=== PATIENT | male | born 1950 | race Caucasian/White ===

== ENCOUNTER 2016-07-08 14:33 | Emergency (ER) | payer OTHER ==
[2016-07-08 14:43] VITALS: BP 137/71; PULSE 73; TEMP 98.1; BMI 36.1
[2016-07-08] MEDS ORDERED: ALBUTEROL SO4 2.5/IPRATROPIUM 0.5 INH SOL 3 ML VIAL.NEB. NEB ONE ×2 (15:36→15:40)
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
== END 2016-07-08 17:34 | disposition home or self-care (01) ==
LOC: JERFT 14:33
PROC: 3E0F7GC Introduction of Other Therapeutic Substance into Respiratory Tract, Via Natural or Artificial Opening (ICD-10-PCS; principal; 2016-07-08)
DX: J20.9 Acute bronchitis, unspecified (principal)
CPT/HCPCS: 71020-TC; 99281-25

== ENCOUNTER 2018-11-18 19:09 | Emergency (ER) | payer OTHER ==
--- NOTE | 2018-11-18 19:32 | PDOC ---
Rapid Medical Evaluation Chief Complaint: Foreign Body (FB) Time Seen by Provider: 11/18/18 19:29 Medical Evaluation: Allergies Allergy/AdvReac Type Severity Reaction Status Date / Time No Known Allergies Allergy Verified 07/08/16 14:43 11/18/18 19:29 c/o glass lodged?in left eye since yesterday, no vision changes, c/o pain to left eye Pe: patient alert ox3 A: eye pain P: patient to the ER further management. Discharge Disposition - Diagnosis Left eye pain - Discharge Dispostion Last Admission D/C Date: 07/10/08 - Referrals - Patient Instructions - Post Discharge Activity
[2018-11-18 19:34] VITALS: BP 158/80; PULSE 65; TEMP 98.4; BMI 35.9
[2018-11-18] MEDS ORDERED: DIPHTH,PERTUSS(ACELL),TET 0.5 ML DISP.SYRIN IM ONE ×2 (19:54→20:34)
--- NOTE | 2018-11-18 20:39 | PDOC ---
History of Present Illness - General Chief Complaint: Foreign Body (FB) Stated Complaint: EYE PAIN Time Seen by Provider: 11/18/18 19:29 - History of Present Illness Initial Comments: 11/18/18 20:36 68-year-old male with a past medical history significant for gout presents for evaluation of a suspected foreign body underneath his left eye. He states he was breaking glass and he felt a piece of glass hit him on the left cheek. He has no visual changes. No eye problems. He pulled off some glass from his face but feels like there may be a retained piece. He has no other symptoms. Past History - Past Medical History Allergies/Adverse Reactions: Allergies Allergy/AdvReac Type Severity Reaction Status Date / Time No Known Allergies Allergy Verified 11/18/18 20:33 Home Medications: Ambulatory Orders Cephalexin [Keflex] 500 mg PO QID #28 capsule 11/18/18 COPD: No - Suicide/Smoking/Psychosocial Hx Smoking History: Never smoked Have you smoked in the past 12 months: No Information on smoking cessation initiated: No Hx Alcohol Use: No Drug/Substance Use Hx: No Substance Use Type: None Review of Systems - Review of Systems Constitutional: Yes: See HPI *Physical Exam - Vital Signs Last Vital Signs Temp Pulse Resp BP Pulse Ox 98.4 F 65 18 158/80 100 11/18/18 19:30 11/18/18 19:30 11/18/18 19:30 11/18/18 19:30 11/18/18 19:30 - Physical Exam Comments: 11/18/18 20:37 HEAD: NC/AT EYES: Conjuntiva clear; there is a small superficial laceration on the left cheek there is no palpable foreign body or indication of infection there is normal skin color and temperature. MS: Full ROM in all joints without edema NEUROLOGIC: No gross sensory or motor deficits, NVID SKIN: Normal color and temperature no lesions or rashes ED Treatment Course - RADIOLOGY Radiology Studies Ordered: Category Date Time Status ORBITS [RAD] Stat Radiology 11/18/18 19:54 Taken Medical Decision Making - Medical Decision Making 11/18/18 20:38 X-rays of the left orbit show no evidence of suspected foreign body. I've updated tetanus, prophylax this patient with Keflex and I will have her follow- up with ophthalmology. *DC/Admit/Observation/Transfer Diagnosis at time of Disposition: Facial abrasion Diagnosis at time of Disposition: (Ruled Out): Left eye pain - Discharge Dispostion Disposition: HOME Condition at time of disposition: Stable Decision to Admit order: No - Prescriptions Prescriptions: Cephalexin [Keflex] 500 mg PO QID #28 capsule - Referrals Referrals: Austen Chung [Non Staff, Medical] - Sherwin Pate [Non Staff, Medical] - - Patient Instructions Additional Instructions: Your tetanus was updated today. Please take the antibiotics prophylactically as directed and finish the entire course. Follow-up with ophthalmology in one to 2 days for further evaluation and treatment options and return to the emergency room should symptoms worsen. - Post Discharge Activity
== END 2018-11-18 20:51 | disposition home or self-care (01) ==
LOC: JERFT 19:09 → JER 19:09 → JERFT 20:51
PROC: 3E0234Z Introduction of Serum, Toxoid and Vaccine into Muscle, Percutaneous Approach (ICD-10-PCS; principal; 2018-11-18)
DX: S00.81XA Abrasion of other part of head, initial encounter (principal); W25.XXXA Contact with sharp glass, initial encounter; Y93.89 Activity, other specified; Y92.89 Other specified places as the place of occurrence of the external cause
CPT/HCPCS: 70200-TC-FY; 90471; 90715; 99281-25

== ENCOUNTER 2019-02-21 15:08 | Emergency (ER) | payer OTHER ==
[2019-02-21 15:15] VITALS: BP 122/80; PULSE 90; TEMP 98; BMI 36.7
[2019-02-21] MEDS ORDERED: KETOROLAC TROMETHAMINE 60 MG/2 ML VIAL IM ONE (16:27)
[2019-02-21] MEDS ORDERED: traMADol HCL 50 MG TABLET PO ONE (16:27)
[2019-02-21] MEDS ORDERED: KETOROLAC TROMETHAMINE 60 MG/2 ML VIAL ONE (16:44)
[2019-02-21] MEDS ORDERED: traMADol HCL 50 MG TABLET ONE (16:44)
[2019-02-21 17:13] LABS: BASO % 1.1 % (0-2.0); EOS % 5.6 % (0-4.5); HEMATOCRIT 49.4 % (35.4-49); HEMOGLOBIN 16.2 GM/dL (11.7-16.9); LYMPH % 13.8 % (8-40); MCH 29.8 pg (25.7-33.7); MCHC 32.9 g/dl (32.0-35.9); MEAN CELL VOLUME 90.6 fl (80-96); MEAN PLT VOLUME 7.8 fl (7.5-11.1); MONO % 5.6 % (3.8-10.2); NEUT % 73.9 % (42.8-82.8); PLATELET COUNT 199 K/MM3 (134-434); RBC 5.45 M/mm3 (4.00-5.60); RDW 15.1 % (11.9-15.9); WHITE BLOOD COUNT 11.6 K/mm3 (4.0-10.0)
--- NOTE | 2019-02-21 17:13 | PDOC ---
History of Present Illness <Jeanie Light - Last Filed: 02/21/19 17:36> - General History Source: Patient - History of Present Illness Occurred: reports: other Lower Extremity Pain Location: left: foot, ankle, bilateral: knee <Scott Valencia - Last Filed: 02/21/19 18:01> - General Chief Complaint: Pain Stated Complaint: PAIN IN LEGS Time Seen by Provider: 02/21/19 16:05 Past History <Jeanie Light - Last Filed: 02/21/19 17:36> - Past Medical History COPD: No - Suicide/Smoking/Psychosocial Hx Smoking History: Never smoked Have you smoked in the past 12 months: No Hx Alcohol Use: No Drug/Substance Use Hx: No Substance Use Type: None <Scott Valencia - Last Filed: 02/21/19 18:01> - Past Medical History Allergies/Adverse Reactions: Allergies Allergy/AdvReac Type Severity Reaction Status Date / Time No Known Allergies Allergy Verified 02/21/19 15:15 Home Medications: Ambulatory Orders Cephalexin [Keflex] 500 mg PO QID #28 capsule 11/18/18 Acetaminophen [Tylenol -] 1,000 mg PO Q6H #50 tablet 02/21/19 Tramadol HCl 50 mg PO Q6H #20 tablet MDD 200mg 02/21/19 Review of Systems - Review of Systems Constitutional: No: Chills, Fever Respiratory: No: Shortness of Breath Cardiac (ROS): No: Chest Pain, Palpitations Musculoskeletal: Yes: Joint Pain, Joint Swelling <Scott Valencia - Last Filed: 02/21/19 18:01> *Physical Exam - Vital Signs Last Vital Signs Temp Pulse Resp BP Pulse Ox 98 F 90 18 122/80 98 02/21/19 15:09 02/21/19 15:09 02/21/19 15:09 02/21/19 15:09 02/21/19 15:09 <Jeanie Light - Last Filed: 02/21/19 17:36> - Vital Signs Last Vital Signs Temp Pulse Resp BP Pulse Ox 98 F 90 18 122/80 98 02/21/19 15:09 02/21/19 15:09 02/21/19 15:09 02/21/19 15:09 02/21/19 15:09 - Physical Exam Comments: 02/21/19 17:22 slight limp in ER General Appearance: Yes: Appropriately Dressed, Mild Distress HEENT: positive: Normal Voice Neck: positive: Supple Respiratory/Chest: negative: Respiratory Distress Extremity: positive: Other (minimal swelling diffusely to L ankle/foot w/ minimal ttp, no hot, red joint, no obvious podagra, b/l knees withotu swelling/ redness or ttp, FROMI to b/l LE joints) Integumentary: positive: Dry, Warm Neurologic: positive: Fully Oriented, Alert, Normal Mood/Affect, Motor Strength 5/5 <Scott Valencia - Last Filed: 02/21/19 18:01> ED Treatment Course - LABORATORY CBC & Chemistry Diagram: 02/21/19 16:00 02/21/19 16:00 - ADDITIONAL ORDERS Additional order review: 02/21/19 16:00 RBC 5.45 MCV 90.6 MCHC 32.9 RDW 15.1 MPV 7.8 Neutrophils % 73.9 Lymphocytes % 13.8 Monocytes % 5.6 Eosinophils % 5.6 H Basophils % 1.1 - Medications Given in the ED: ED Medications Discontinued Medications Generic Name Dose Route Start Last Admin Trade Name Freq PRN Reason Stop Dose Admin Ketorolac Tromethamine 60 mg 02/21/19 16:27 02/21/19 16:54 Toradol Injection - IM 02/21/19 16:28 60 mg ONCE ONE Administration Tramadol HCl 50 mg 02/21/19 16:27 02/21/19 16:55 Ultram - PO 02/21/19 16:28 50 mg ONCE ONE Administration <Jeanie Light - Last Filed: 02/21/19 17:36> - LABORATORY CBC & Chemistry Diagram: 02/21/19 16:00 02/21/19 16:00 - Medications Given in the ED: ED Medications Discontinued Medications Generic Name Dose Route Start Last Admin Trade Name Freq PRN Reason Stop Dose Admin Ketorolac Tromethamine 60 mg 02/21/19 16:27 02/21/19 16:54 Toradol Injection - IM 02/21/19 16:28 60 mg ONCE ONE Administration Tramadol HCl 50 mg 02/21/19 16:27 02/21/19 16:55 Ultram - PO 02/21/19 16:28 50 mg ONCE ONE Administration <Scott Valencia - Last Filed: 02/21/19 18:01> Medical Decision Making - Medical Decision Making The patient was seen and evaluated in conjunction with midlevel provider under my direct supervision, ancillary studies were reviewed. I agree with the plan as outlined DARRIUS valencia. HPI, workup/dispo as outlined. VS reviewed, wnl. anticipate discharge, pcp followup, return precautions 02/21/19 17:36 <Jeanie Light - Last Filed: 02/21/19 17:36> - Medical Decision Making 02/21/19 17:02 68 yo M, endorses h/o gout, usually to knees, on allopurinal which he takes daily, ? arthritis, here w/ pain to multiple joints x 2 weeks. 2 weeks ago had swelling to right knee only and was seen by his M.D., who started him on prednisone taper, which he completed with no relief since. Since then has had pain to L knee and L foot, ankle. States pain to left foot/ankle is the worse. Denies any fever or chills. No history of septic joint. States current symptoms feel like his gout see exam Gout flare vs arthritis Pain to multiple joints, most notably to L ankle/foot w/ swelling to site Completed pred taper within 2 weeks w/ no relief No h/o septic joint No hot, red joint on exam No recent trauma No obvious RF for DVT/PE and unlikely given duration of sxs and multiple joints involved -labs including uric acid -pain control/reassess 02/21/19 18:00 Labs unremarkable, uric acid wnl. Pt reports improvement w/ meds. Will dc w/ pain control and have pt f/u with his shutdown planner <Scott Valencia - Last Filed: 02/21/19 18:01> *DC/Admit/Observation/Transfer <Jeanie Light - Last Filed: 02/21/19 17:36> <Scott Valencia - Last Filed: 02/21/19 18:01> Diagnosis at time of Disposition: Multiple joint pain - Discharge Dispostion Disposition: HOME Condition at time of disposition: Improved - Prescriptions Prescriptions: Acetaminophen [Tylenol -] 1,000 mg PO Q6H #50 tablet Tramadol HCl 50 mg PO Q6H #20 tablet MDD 200mg - Referrals Referrals: Yoni Retana MD, [Primary Care Provider] - - Patient Instructions Additional Instructions: It is unclear if you joint pain is due to gout or arthritis as your uric acid level was 6.8 which is normal level Take tylenol for pain and if needed, take tramadol as directed Please follow up with your shutdown planner - Post Discharge Activity
[2019-02-21 17:47] LABS: ALBUMIN 3.7 g/dl (3.4-5.0); BILIRUBIN,TOTAL 0.9 mg/dL (0.2-1); BLOOD UREA NITROGEN 19.8 mg/dL (7-18); CALCIUM 9.1 mg/dL (8.5-10.1); POTASSIUM 4.6 mmol/L (3.5-5.1); TOT PROT 7.6 g/dl (6.4-8.2)
[2019-02-21 18:01] LABS: PLATELET ESTIMATE ADEQUATE
== END 2019-02-21 17:55 | disposition home or self-care (01) ==
LOC: JER 15:08
PROC: 3E0233Z Introduction of Anti-inflammatory into Muscle, Percutaneous Approach (ICD-10-PCS; principal; 2019-02-21)
DX: M25.572 Pain in left ankle and joints of left foot (principal); M25.561 Pain in right knee; M25.562 Pain in left knee; Z87.39 Personal history of other diseases of the musculoskeletal system and connective tissue
CPT/HCPCS: 36415; 80053; 84550; 85025; 99284-25

== ENCOUNTER 2019-07-10 23:04 | Emergency (ER) | payer OTHER ==
[2019-07-10 23:17] VITALS: BP 145/96; PULSE 64; TEMP 97.9; BMI 38.9
--- NOTE | 2019-07-10 23:25 | PDOC ---
History of Present Illness - General Chief Complaint: Pain, Acute Stated Complaint: LT GROIN PAIN Time Seen by Provider: 07/10/19 23:14 - History of Present Illness Initial Comments: 07/10/19 23:46 This 69-year-old man with a history of gout/HLD/kidney stone presents with a 1 day history of left lower quadrant abdominal pain. Patient first felt the pain during the day today (steady, does not change with position or movement). No previous CVA/flank/other abdominal pain in the last few days. He denies fever/ chills/nausea/vomiting/diarrhea. He has been eating and drinking fluids without difficulty (last meal at approximately 6 PM). No dysuria/hematuria/ urinary frequency. No history of abdominal wall trauma or strenuous activity such as lifting/pulling/pushing heavy material. Patient has a history of 4 mm left UVJ stone seen on spiral CT 04/23/2015 ( patient was seen at [facility] ED). Stone passed spontaneously and he has had no subsequent episodes of renal colic. Patient states that although he takes allopurinol his uric acid level is chronically elevated and he has frequent episodes of joint pains secondary to his gout. Medications as noted below; patient is compliant with his medications No known allergies Non-smoker; no alcohol/other recreational drug use Past History - Past Medical History Allergies/Adverse Reactions: Allergies Allergy/AdvReac Type Severity Reaction Status Date / Time No Known Allergies Allergy Verified 02/21/19 15:15 Home Medications: Ambulatory Orders Indomethacin 07/10/19 Pravastatin Sodium [Pravachol] 40 mg PO DAILY 07/10/19 Amox-Tr/K Cl [Augmentin - 875Mg Tablet] 1 tab PO BID #20 tablet 07/11/19 metroNIDAZOLE [Flagyl -] 250 mg PO TID #21 tablet 07/11/19 COPD: No Hypercholesterolemia: Yes Other medical history: GOUT - Psycho Social/Smoking Cessation Hx Smoking History: Unknown if ever smoked Have you smoked in the past 12 months: No Information on smoking cessation initiated: No Hx Alcohol Use: No Drug/Substance Use Hx: No Substance Use Type: None Review of Systems - Review of Systems Able to Perform ROS?: Yes Comments:: 12 point review of systems is negative except for what is noted in the history of present illness *Physical Exam - Vital Signs Last Vital Signs Temp Pulse Resp BP Pulse Ox 97.9 F 64 16 145/96 98 07/10/19 23:09 07/10/19 23:09 07/10/19 23:09 07/10/19 23:09 07/10/19 23:09 - Physical Exam GENERAL: Adult male, alert and oriented x3, no acute distress HEAD: Normal with no signs of trauma. EYES: PERRLA, EOMI, sclera anicteric, conjunctiva clear. ENT: Ears normal, nares patent, oropharynx clear without exudates. Dry mucous membranes. NECK: Normal range of motion, supple without lymphadenopathy, JVD, or masses. LUNGS: Breath sounds equal, clear to auscultation bilaterally. No wheezes, and no crackles. HEART:Regular rate and rhythm, normal S1 and S2 without murmur, rub or gallop. ABDOMEN:.normal bowel sounds; soft, mildly distended; moderate left lower quadrant tenderness with mild guarding; no rebound No CVA/flank/scrotal tenderness EXTREMITIES: Normal range of motion, no edema. No clubbing or cyanosis. No erythema, or tenderness. NEUROLOGICAL: Cranial nerves II through XII grossly intact. Normal speech. No focal neurological deficits. SKIN: Warm, Dry, normal turgor, no rashes or lesions noted. ED Treatment Course - LABORATORY CBC & Chemistry Diagram: 07/11/19 00:00 07/11/19 00:00 Medical Decision Making - Medical Decision Making This 69-year-old man with a history of gout/HLD/one episode of renal colic in the past presents with 1 day history of left lower quadrant pain which does not change with position or movement. No associated symptoms. Exam as noted with point tenderness in the left lower quadrant. With the patient's previous history of renal colic and gout, kidney stone is a possibility; differential diagnosis also includes diverticulitis/UTI Patient provided urine sample and IV access obtained. CBC,Chemistry profile,UA sent Patient received a liter of normal saline and 30 mg of Toradol IV Diagnostic work-up: CBC notable for mild elevation of white blood cell count to 10,700; urinalysis was normal without evidence of hematuria or other abnormality Reexamination revealed persistence of left lower quadrant tenderness Abdominal/pelvic CT with IV contrast performed: Preliminary interpretation by Imaging controlled area checker-uncomplicated sigmoid diverticulitis without evidence for other abnormality. Results discussed with patient. Patient re-affirmed that he has no allergies to antibiotics. Patient given dose of Augmentin 875/125 and 250 mg of Flagyl by mouth. 10-day course of Augmentin 875/125 twice a day and Flagyl 250 mg 3 times a day sent to patient's pharmacy Light diet is recommended as well as plenty of fluids. He should follow-up with his general medical doctor () within the next 3 to 4 days. He should return to the ER if he experiences increasing abdominal pain, fever or vomiting Discharge - Discharge Information Problems reviewed: Yes Clinical Impression/Diagnosis: Acute diverticulitis Condition: Stable Disposition: HOME - Additional Discharge Information Prescriptions: Amox-Tr/K Cl [Augmentin - 875Mg Tablet] 1 tab PO BID #20 tablet metroNIDAZOLE [Flagyl -] 250 mg PO TID #21 tablet - Follow up/Referral Referrals: Yoni Retana MD, MD [Primary Care Provider] - 3 days - Patient Discharge Instructions Patient Printed Discharge Instructions: Diverticulitis Additional Instructions: Light diet Augmentin 875/125 twice a day for 10 days; take with food Flagyl 250 mg 3 times a day for 10 days Follow-up with your doctor within the next 3 to 4 days Return to ER if you have more severe pain or you develop fever/vomiting - Post Discharge Activity
[2019-07-10] MEDS ORDERED: KETOROLAC TROMETHAMINE 30 MG/1 ML VIAL IVPUSH ONE (23:40)
[2019-07-10] MEDS ORDERED: SODIUM CHLORIDE 1,000 ML IV STA (23:40)
[2019-07-10] MEDS ORDERED: KETOROLAC TROMETHAMINE 30 MG/1 ML VIAL ONE (23:46)
[2019-07-11 00:41] LABS: EOS % 6.6 % (0-4.5); HEMATOCRIT 46.1 % (35.4-49); HEMOGLOBIN 15.6 GM/dL (11.7-16.9); LYMPH % 20.4 % (8-40); MCH 30.2 pg (25.7-33.7); MCHC 33.9 g/dl (32.0-35.9); MEAN CELL VOLUME 89.1 fl (80-96); MEAN PLT VOLUME 8.9 fl (7.5-11.1); MONO % 7.8 % (3.8-10.2); NEUT % 64.2 % (42.8-82.8); PLATELET COUNT 143 K/MM3 (134-434); RBC 5.18 M/mm3 (4.00-5.60); RDW 16.2 % (11.9-15.9); WHITE BLOOD COUNT 10.7 K/mm3 (4.0-10.0)
[2019-07-11 01:01] LABS: PH,URINE 5.5 (5.0-8.0); URINE APPEARANCE CLEAR; URINE BILIRUBIN NEGATIVE (NEGATIVE); URINE COLOR YELLOW; URINE GLUCOSE (UA) NEGATIVE (NEGATIVE); URINE KETONE NEGATIVE (NEGATIVE); URINE LEUK ESTERASE NEGATIVE (NEGATIVE); URINE NITRITE NEGATIVE (NEGATIVE); URINE PROTEIN NEGATIVE (NEGATIVE); URINE UROBILINOGEN 0.2 mg/dL (0.2-1.0)
[2019-07-11 01:22] LABS: ALBUMIN 3.9 g/dl (3.4-5.0); BILIRUBIN,TOTAL 0.6 mg/dL (0.2-1); BLOOD UREA NITROGEN 19.8 mg/dL (7-18); CALCIUM 9.2 mg/dL (8.5-10.1); POTASSIUM 4.3 mmol/L (3.5-5.1); TOT PROT 7.8 g/dl (6.4-8.2)
[2019-07-11] MEDS ORDERED: AMOX TR/POT CLAV 875MG/125MG TABLETS (FP) PO ONE (02:40)
[2019-07-11] MEDS ORDERED: metroNIDAZOLE 500 MG TABLET PO ONE (02:41)
[2019-07-11] MEDS ORDERED: metroNIDAZOLE 250 MG TABLET ONE (02:42)
[2019-07-11] MEDS ORDERED: AMOX TR/POT CLAV 875MG/125MG TABLETS (FP) ONE (02:42)
== END 2019-07-11 02:48 | disposition home or self-care (01) ==
LOC: FER 23:04
PROC: 3E0333Z Introduction of Anti-inflammatory into Peripheral Vein, Percutaneous Approach (ICD-10-PCS; principal; 2019-07-10)
DX: K57.92 Diverticulitis of intestine, part unspecified, without perforation or abscess without bleeding (principal); M10.9 Gout, unspecified; E78.5 Hyperlipidemia, unspecified; N20.0 Calculus of kidney
CPT/HCPCS: 36415; 74177-TC; 80053; 81003; 85025; 99283-25; J7030; Q9967

== ENCOUNTER 2020-07-02 14:08 | Emergency (ER) | payer OTHER | END 2020-07-02 16:24 | disposition home or self-care (01) | LOC: JER 14:08 | DX: U07.1 COVID-19 (principal) | CPT/HCPCS: 99283-25 ==

== ENCOUNTER 2020-07-08 11:25 | Emergency (ER) | payer OTHER ==
[2020-07-08 11:33] VITALS: BP 141/76; PULSE 86; TEMP 101.2; BMI 34.0
[2020-07-08] MEDS ORDERED: ACETAMINOPHEN 325 MG TABLET (FP) PO ONE (12:06)
[2020-07-08] MEDS ORDERED: ACETAMINOPHEN 325 MG TABLET (FP) ONE (12:09)
[2020-07-08] MEDS: LACTATED RINGERS SOLUTION 1000 ML INFUS.BAG IV ONE ×2 (12:10→12:28)
[2020-07-08] MEDS ORDERED: SODIUM CHLORIDE 0.9% 500 ML INFUS.BAG IV ONE (12:12)
[2020-07-08 12:51] LABS: BASO % 1.5 % (0-2.0); EOS % 0.9 % (0-4.5); HEMATOCRIT 47.8 % (35.4-49); HEMOGLOBIN 15.8 GM/dl (11.7-16.9); LYMPH % 14.4 % (8-40); MCH 30.4 pg (25.7-33.7); MEAN CELL VOLUME 92.2 fl (80-96); MEAN PLT VOLUME 8.9 fl (7.5-11.1); MONO % 9.6 % (3.8-10.2); NEUT % 73.6 % (42.8-82.8); PLATELET COUNT 113 K/MM3 (134-434); RBC 5.18 M/mm3 (4.00-5.60); RDW 14.6 % (11.9-15.9); WHITE BLOOD COUNT 5.2 K/mm3 (4.0-10.8)
[2020-07-08 13:02] LABS: ALBUMIN 3.9 g/dl (3.4-5.0); BILIRUBIN,TOTAL 1.2 mg/dl (0.2-1); CALCIUM 8.3 mg/dl (8.5-10); POTASSIUM 4.6 mmol/L (3.5-5.1); TOT PROT 7.4 g/dl (6.4-8.2)
== END 2020-07-08 13:55 | disposition home or self-care (01) ==
LOC: FER 11:25
DX: U07.1 COVID-19 (principal); R51.9 Headache, unspecified; R07.0 Pain in throat; R06.02 Shortness of breath
CPT/HCPCS: 36415; 71045-TC-FY; 80053; 82550; 82553; 84484; 85025; 93005; 99285-25

== ENCOUNTER 2021-06-23 08:28 | Emergency (ER) | payer OTHER ==
[2021-06-23 09:05] VITALS: TEMP 98.8; BMI 37.6
[2021-06-23 09:10] LABS: INR 1.09 (0.83-1.09); PROTHROMBIN TIME (PATIENT) 12.1 SEC (9.7-13.0)
[2021-06-23 09:20] LABS: ALBUMIN 4.3 g/dl (3.4-5.0); BILIRUBIN,TOTAL 1.1 mg/dl (0.2-1); CALCIUM 9.4 mg/dl (8.5-10); CREATININE 0.9 mg/dl (0.55-1.3); TOT PROT 7.5 g/dl (6.4-8.2)
[2021-06-23] MEDS ORDERED: MECLIZINE HCL 25 MG TABLET (FP) PO ONE (09:44)
[2021-06-23] MEDS ORDERED: MECLIZINE HCL 25 MG TABLET (FP) ONE (09:48)
[2021-06-23 10:29] LABS: BASO % 0.8 % (0-2.0); EOS % 8.6 % (0-4.5); HEMATOCRIT 48.2 % (35.4-49); HEMOGLOBIN 15.9 GM/dL (11.7-16.9); LYMPH % 17.1 % (8-40); MCH 30.3 pg (25.7-33.7); MCHC 33.1 g/dl (32.0-35.9); MEAN CELL VOLUME 91.8 fl (80-96); MEAN PLT VOLUME 8.4 fl (7.5-11.1); NEUT % 67.5 % (42.8-82.8); PLATELET COUNT 137 10^3/uL (134-434); RBC 5.25 M/mm3 (4.00-5.60); RDW 15.1 % (11.9-15.9); WHITE BLOOD COUNT 7.9 K/mm3 (4.0-10.0)
[2021-06-23 11:50] VITALS: BP 140/88; PULSE 74
== END 2021-06-23 12:13 | disposition left against medical advice (07) ==
LOC: FER 08:28
DX: R42 Dizziness and giddiness (principal); I24.9 Acute ischemic heart disease, unspecified
CPT/HCPCS: 36415; 71045-TC-FY; 80053; 82550; 84484; 85025; 85610; 93005; 99285-25; C9803; U0003; U0005